=== PATIENT | female | born 1960 | race Caucasian/White ===

== ENCOUNTER → 2017-02-21 | Outpatient (CLI) | payer OTHER ==
[~2017-02-21] MED LIST: ASPIRIN81 M2 PO; MULTI VITAMIN1 EACH PO; TYLENOL325 M1 PO
--- NOTE | ~2017-02-21 | MY29 ---
[facility] A Service [facility] RADIOLOGY TEXT RESULTS PATIENT: ZOEY JONES LOCATION: [facility] : 64 UNIT #: [id number] AGE: [address]: ESPINOZA ROGERS SEX: F ORDER DR: [id number] [place], [place] [address] [id number] O MR#: [id number] Acc #: [id number] NAME: ZOEY JONES : 1960 SEX: F STUDY DATE/TIME: 02/21/2017 8:43 UNIT: [facility] ROOM: STUDY DESCRIPTION: MY CASSANDRA SCREENING W/ CAD BILAT Attending Physician: Espinoza Rogers Aprn Referring Physician: Espinoza Rogers Aprn Ordering Physician: Espinoza Rogers Aprn Primary Care Physician: Espinoza Rogers Aprn MEDICAL IMAGING REPORT This report is preliminary unless electronic signature is present EXAM Bilateral digital screening mammogram with CAD, 02/21/2017 INDICATIONS 56-year-old female for routine screening. No reported problems. No personal history of breast cancer. Family history positive on the patient's maternal side. No surgeries. TECHNIQUE CC and MLO views of the breasts were obtained and reviewed with an FDA-approved CAD device. COMPARISON 02/15/2016, 04/21/2013 FINDINGS Breast parenchyma is predominantly fatty replaced; the pattern is unchanged. There is no new dominant nodule, mass or suspicious cluster of microcalcifications. Benign calcifications are present. IMPRESSION 1. Benign screening mammogram. One-year followup recommended. Patients over the age of 40 are entered into a reminder system with target due date for the next mammogram. A result letter will also be sent to the patient. BIRADS: 2 Benign Finding [facility] A Service of [facility] RADIOLOGY TEXT RESULTS PATIENT: ZOEY JONES LOCATION: [facility] : 64 UNIT #: [id number] AGE: [address]: ESPINOZA ROGERS SEX: F ORDER DR: Dictated by... Jeffery Rivers M.D. THIS IS AN ELECTRONICALLY VERIFIED REPORT Jeffery Rivers M.D. at 02/21/2017 5:23 PM NELLY/ruthie TD: 02/21/2017 13:41 JOB #: [id number] MEDICAL IMAGING REPORT Page 1 of 1 COPY
== END | disposition home or self-care (01) ==
LOC: CWCC 01-30 13:15
DX: Z12.31 Encounter for screening mammogram for malignant neoplasm of breast (principal); Z80.3 Family history of malignant neoplasm of breast
CPT/HCPCS: G0202